=== PATIENT | male | born 1985 | race Caucasian/White ===

== ENCOUNTER → 2019-03-10 05:36 | Day surgery (SDC) | payer OTHER ==
[~2019-03-10 05:36] MED LIST: Buffered Lidocaine 1% SYRIN* 1 ML/SYRINGE INTRADERM ONE; Bupivacaine 0.25% EPI 200,000* 30 ML SDV ONE; Dexamethasone IV* 4 MG/ML 1 ML (4 MG) ONE; Glycopyrrolate IV* 0.2 MG/ML 1 ML VIAL ONE; Ketorolac INJ* 30 MG/ML 1 ML VIAL ONE; Lactated Ringers 1000 ML Bag* 1,000 ML IV SCH; Naloxone* 0.4 MG/ML 1 ML VIAL IV PRN; Neostigmine Methylsulfate* 1 MG/ML 10 ML VIAL (1 mg/ml) ONE; Ondansetron INJ* 2 MG/ML VIAL IV PRN; Propofol* 10 MG/ML 20 ML BTL ONE; Rocuronium* 10 MG/ML VIAL ONE; Sodium Citrate/Citric Acid* 15 ML UDC ONE; Sodium Citrate/Citric Acid* 15 ML UDC PO ONE; ceFAZolin 2 GM in NS PREMIX(*) 2 GM/100 ML BAG IVPB ONE; fentaNYL* 50 MCG/ML 2 ML VIAL (100 MCG VIAL) ONE
--- NOTE | 2019-03-10 09:00 | BRIEFOPN ---
Brief Operative Note - Surgery Procedures: Pre-OP Diagnoses: Right inguinal hernia Post-op Diagnosis: same Procedure: Laparoscopic right inguinal hernia repair with mesh Surgeon: Cathie Asst: Kam Chavez PA-S Anethesia: SALMA Carmichael EBL: minimal IVF: 1100cc LR Specimen: R inguinal lymph node Drains: none
[2019-03-10] MEDS: fentaNYL* 50 MCG/ML 2 ML VIAL (100 MCG VIAL) IV PRN ×2 (09:36→09:56)
[2019-03-10 11:13] VITALS: BP 134/98
--- NOTE | 2019-03-10 13:21 | OP ---
DATE OF OPERATION: 03/10/19 - [facility] DATE OF : 89 SURGEON: Jim Brand MD ASSISTANTS: 1. Emily Chavez NP 2. JAKE Burleson student. ANESTHESIOLOGIST: Dr. Carmichael. ANESTHESIA: General anesthesia. PRE-OP DIAGNOSIS: Right inguinal hernia. POST-OP DIAGNOSES: Right inguinal hernia and right inguinal lymphadenopathy. OPERATIVE PROCEDURE: Laparoscopic right inguinal hernia repair with mesh. ESTIMATED BLOOD LOSS: Minimal. FLUIDS: 700 cc of crystalloid fluid given. SPECIMENS: Incisional biopsy of right groin lymph node. DRAINS: None. DESCRIPTION OF PROCEDURE: The patient was identified in the preoperative area. Consent was signed. Case was discussed and the patient was marked in the appropriate fashion. He was brought to the operating room, placed on the operating table in supine position. Preoperative antibiotics were given. Sequential devices were placed on bilateral lower extremities and general anesthesia was induced. The patient's abdomen was clipped of hair, and then prepped and draped in standard surgical fashion and time-out was performed. Infraumbilical incision was made. This was deepened down to the anterior fascia on the right. This was incised and the rectus pillar retracted laterally and entry into the preperitoneal space was made. Finger dissection was utilized. This was somewhat difficult due to the depth. We then placed a 12 mm trocar into the space and allowed to insufflate to pressure 12 mmHg. The patient tolerated the insufflation well. Laparoscope was then inserted and a blunt dissection with the cannula was then made down to pubic symphysis. We then placed two 5 mm trocars in the lower midline. Additional dissection was carried out to free the preperitoneal space. The Dallas's ligament on left and right were both identified. There appeared to be no direct hernia. We attempted to sweep the peritoneum down. It was somewhat difficult in the lateral aspect. I utilized scissors to free this up and incised into a peritoneum. I used a clip post manager to reapproximate this peritoneum. This was significantly superior to where the middle area was. We next got into the [place] space laterally on the right, freed this up, and identified the spermatic structures. Lipoma of the cord was dissected free and sent posteriorly. Approximately 2 cm lymph node was then identified. This was left alone. We then isolated the spermatic structures and skeletonized these. No significant indirect sac was identified. Next, we looked into the inguinal canal. This was clear of any additional lipoma and there was no sac in the site. Next, we then addressed the lymph node. I decided to make a biopsy of this firm lymph node that was normal appearing color and again, approximately 1.5 to 2 cm large in the appropriate positioning, but extending towards the deep ring. Utilizing scissors, we sized off approximately 0.5 cm piece and passed this off as specimen. We then used cautery to effect hemostasis at the cut edge. We suctioned additional blood in the preperitoneal space. There appeared to be no active bleeding. Next, we placed a Bard regular-sized right side 3D mesh into the preperitoneal space, allowed it to unfurl and tacked it to Dallas's ligament and also laterally at Bogros space taking care to stay away from the triangle of doom. It unfurled in an appropriate fashion. It was not too tight or not wrinkled, covered both direct and indirect spaces. The preperitoneal space was then allowed to collapse. We then removed trocars under direct vision. I opened up the posterior fascia and then peritoneum and allowed the air to escape from the abdomen. We then closed the anterior fascia with 0 Polysorb suture in a [id number] fashion and then reapproximated all 3 skin incisions with 4-0 Monocryl subcuticular sutures followed by Steri-Strips and sterile dressing. The patient tolerated the procedure well. [id number]/[facility] #: [id number] CORAL
== END | disposition home or self-care (01) ==
LOC: EDBD → OR 05:36
PROVIDERS: ATTEND Surgery
DX: K40.90 Unilateral inguinal hernia, without obstruction or gangrene, not specified as recurrent (principal); R59.0 Localized enlarged lymph nodes; Z87.891 Personal history of nicotine dependence
CPT/HCPCS: 88184; 88187; 88188; 88189; 88305; 88333; A9270-GY; C1781; J0690; J1100; J1885; J2704; J2710; J3010